=== PATIENT | female | born 1975 | race Hispanic/Latino ===

== ENCOUNTER 2018-05-14 11:15 | Outpatient (CLI) | payer OTHER ==
--- NOTE | 2018-05-14 16:24 | Mammography Report ---
BILATERAL DIGITAL AUGMENTED SCREENING MAMMOGRAM with CAD: 05/14/18 11:15:00 CLINICAL: Routine screening. COMPARISON:06/07/16 and 2016 FINDINGS: Screening views with and without implant displacement demonstrate heterogeneously dense breasts, which may obscure small masses. A previously confirmed right upper benign cyst is slightly larger. No mass, architectural distortion or suspicious calcifications. Intact subpectoral implants. IMPRESSION: No mammographic evidence of malignancy. BI-RADS CATEGORY: 2 -- Benign RECOMMENDATION: Routine mammographic screening in one year. ACR BI-RADS MAMMOGRAPHIC CODES: 0 = Needs additional imaging evaluation; 1 = Negative; 2 = Benign; 3 = Probably benign; 4 = Suspicious; 5 = Malignant; 6 = Known biopsy-proven malignancy COMMENT: 1. Dense breast tissue, i.e., adenosis, fibrocystic changes, etc., may obscure an underlying neoplasm. 2. Approximately 10% of cancers are not detected with mammography. 3. A negative mammography report should not delay biopsy if a clinically suspicious mass is present. COMMENT: Patient follow-up letters are generated via our [employer] application.
== END 2018-05-14 11:16 | disposition home or self-care (01) ==
LOC: SPVWC 11:15
PROVIDERS: ATTEND Obstetrics & Gynecology
DX: Z12.31 Encounter for screening mammogram for malignant neoplasm of breast (principal)
CPT/HCPCS: 77067

== ENCOUNTER 2020-05-05 12:57 | Outpatient (CLI) | payer OTHER ==
--- NOTE | 2020-05-05 15:39 | Mammography Report ---
DIGITAL SCREENING MAMMOGRAM WITH CAD, 05/05/2020 CLINICAL INFORMATION / INDICATION: Routine screening mammography. SCREENING MAMMO TECHNIQUE: Digital bilateral 2D mammography was obtained in the craniocaudal and mediolateral obliqu e projections. This examination was interpreted with the benefit of Computer-Aided Detection analysis . COMPARISON: Prior mammogram 05/14/2018 and 06/01/2016 FINDINGS: Breast Density: The breasts are heterogeneously dense, which may obscure small masses. No dominant mass, suspicious calcifications, or architectural distortion in either breast. There are bilateral retropectoral saline implants. There are fluctuating benign-appearing nodular den sities seen in both breasts, with prior right breast ultrasound showing corresponding cysts. IMPRESSION: No mammographic evidence of malignancy. Follow up recommendation: Routine yearly BI-RADS Category 2: Benign. A "normal" or negative report should not discourage follow up or biopsy of a clinically significant f inding. A written summary of these findings will be mailed to the patient. The patient will be entered into a mammography reporting system which will generate a reminder letter for the patient's next appointmen t at the appropriate interval. The [employer] recommends yearly mammograms starting at age 40 and continuing as l joão as a woman is in good health. Breast MRI is recommended for women with an approximate 20-25% or greater lifetime risk of breast cancer, including women with a strong family history of breast or ova ai cancer or who have been treated for Hodgkin's disease. Signer Name: Mary Strong MD Signed: 05/05/2020 3:34 PM Workstation Name: [id number]
== END 2020-05-05 12:58 | disposition home or self-care (01) ==
LOC: SPVWC 12:57
PROVIDERS: ATTEND Obstetrics & Gynecology
DX: Z12.31 Encounter for screening mammogram for malignant neoplasm of breast (principal)
CPT/HCPCS: 77067

== ENCOUNTER 2021-05-02 14:57 | Outpatient (CLI) | payer OTHER ==
--- NOTE | 2021-05-03 10:31 | Ultrasound Report ---
BILATERAL DIGITAL DIAGNOSTIC MAMMOGRAM WITH CAD CONVENTIONAL, 05/02/2021 BILATERAL LIMITED BREAST ULTRASOUND CLINICAL INFORMATION / INDICATION: Patient presents for evaluation of an area of palpable concern in both breasts. ABN MAMMO TECHNIQUE: Digital bilateral mammographic imaging was performed. Limited ultrasound was performed. Th is examination was interpreted with the benefit of Computer-Aided Detection (CAD) analysis. COMPARISON: Prior mammogram 05/05/2020 and 05/14/2018 FINDINGS: Breast Density: The breasts are heterogeneously dense, which may obscure small masses. MAMMOGRAPHIC FINDINGS: There are bilateral retropectoral saline implants. No dominant mass, suspiciou s calcifications, or architectural distortion in either breast. There is fluctuating benign-appearing nodularity seen in both breasts most compatible with a benign process, likely cysts. Targeted ultras ound was subsequently performed of the areas of palpable concern in both breasts. ULTRASOUND FINDINGS: Targeted ultrasound evaluation was performed of the area of interest. Right breast: Targeted ultrasound of the area of palpable concern in the subareolar right breast reve als a 1.9 cm benign simple cyst, and an adjacent 7 mm benign complicated cyst with internal debris. N o suspicious solid lesion identified. Left breast: Targeted ultrasound of the area of concern in the subareolar left breast reveals a 1.3 c m benign simple cyst. No suspicious solid lesion identified. IMPRESSION: 1. Benign cysts account for the area of concern in both breasts. No suspicious mammographic or sonogr aphic abnormality identified. Follow up recommendation: Routine yearly BI-RADS Category 2: BENIGN. A "normal" or negative report should not discourage follow up or biopsy of a clinically significant f inding. A written summary of these findings will be mailed to the patient. The patient will be entered into a mammography reporting system which will generate a reminder letter for the patient's next appointmen t at the appropriate interval. According to the [employer], yearly mammograms are recommended starting at age 40 and continuing as long as a woman is in good health. Breast MRI is recommended for women with an khang roximately 20-25% or greater lifetime risk of breast cancer, including women with a strong family his tory of breast or ovarian cancer and women who have been treated for Hodgkin's disease. Signer Name: Mary Strong MD Signed: 05/03/2021 10:27 AM Workstation Name: [id number]
== END 2021-05-02 14:58 | disposition home or self-care (01) ==
LOC: SPVWC 14:57
PROVIDERS: ATTEND Obstetrics & Gynecology
DX: N60.02 Solitary cyst of left breast (principal); N60.01 Solitary cyst of right breast; N63.11 Unspecified lump in the right breast, upper outer quadrant
CPT/HCPCS: 77066